=== PATIENT | female | born 1985 | race Caucasian/White ===

== ENCOUNTER 2017-04-19 05:16 | Inpatient (IN) | payer OTHER ==
[~2017-04-19] VITALS: Ht 167.6 cm; Wt 68.5 kg
[2017-04-19] VITALS (30 sets, daily range): BP systolic 95–140; BP diastolic 53–110; PULSE 73–98; RESP 16–18; TEMP 97.8–98.5; O2SAT 99–100
[~2017-04-19 05:16] MED LIST: PERC5TAB12 PO; PREN0.01 PO
[2017-04-19] MEDS ORDERED: MINERAL OIL 10 ML VIAL TOPICAL PRN (06:00)
[2017-04-19] MEDS ORDERED: LIDOCAINE HCL 1% 50 ML VIAL INFIL PRN (06:00)
[2017-04-19] MEDS ORDERED: LACTATED RINGER'S 1000 ML BOLUS IV PRN (06:00)
[2017-04-19] MEDS ORDERED: CITRIC ACID-SODIUM CITRATE LIQ 30 ML UDC PO SCH (06:00)
[2017-04-19] MEDS ORDERED: OXYTOCIN 30 UNITS 500ML PREMIX IV ONE (06:00)
[2017-04-19] MEDS ORDERED: ONDANSETRON HCL 4 MG/2 ML VIAL IV PUSH PRN ×2 (06:00→19:00)
[2017-04-19] MEDS ORDERED: NS 1000 ML IV PRN (06:00)
[2017-04-19] MEDS ORDERED: NS 500 ML BOLUS IV PRN (06:00)
[2017-04-19] MEDS ORDERED: LIDOCAINE HCL 1% 50 ML VIAL I-DERMAL PRN (06:00)
[2017-04-19] MEDS ORDERED: OXYTOCIN 30 UNITS/NS 500ML PREMIX IV PRN (06:15)
[2017-04-19] MEDS: LACTATED RINGER'S 1000 ML IV SCH ×2 (06:17→14:00)
[2017-04-19 06:27] LABS: BACTERIA, URINE RARE /hpf; BILIRUBIN, URINE NEG (NEG); BLOOD, URINE NEG (NEG); GLUCOSE,URINE NEG (NEG); KETONE, URINE NEG (NEG); MUCUS URINE FEW /lpf (OCC); NITRITE,URINE NEG (NEG); PH, URINE 6.5 (5.0-8.5); SQUAMOUS EPITHELIAL CELL URINE 6 /hpf (0-5); URINE COLOR YELLOW (YELLW/STRAW); URINE LEUKOCYTE ESTERASE NEG (NEG)
[2017-04-19 06:28] LABS: AUTOMATED NEUTROPHIL # 7.4 TH/MM3 (1.8-7.7); BASOPHIL % 0.3 % (0.0-2.0); EOSINOPHIL # 0.2 TH/MM3 (0-0.4); EOSINOPHIL % 1.8 % (0.0-4.0); HEMOGLOBIN 12.8 GM/DL (11.6-15.3); LYMPH % 20.2 % (9.0-44.0); LYMPHOCYTE # 2.1 TH/MM3 (1.0-4.8); MEAN CELL VOLUME 91.9 FL (80.0-100.0); MEAN CORPUSCULAR HEMOGLOBIN 33.5 PG (27.0-34.0); MEAN PLATELET VOLUME 8.6 FL (7.0-11.0); MONO % 5.7 % (0.0-8.0); MONOCYTE # 0.6 TH/MM3 (0-0.9); PLATELET COUNT 190 TH/MM3 (150-450); RED BLOOD COUNT 3.81 MIL/MM3 (4.00-5.30); RED CELL DISTRIBUTION WIDTH 13.7 % (11.6-17.2); WHITE BLOOD COUNT 10.3 TH/MM3 (4.0-11.0)
[2017-04-19 06:29] LABS: MEAN CORPUSCULAR HGB CONC 36.5 % (32.0-36.0)
[2017-04-19 07:06] LABS: BANDS 12 % (0-6); LYMPHOCYTES 16 % (9-44); MONOCYTES 3 % (0-8); NEUTROPHIL # MANUAL DIFF 8.1 TH/MM3 (1.8-7.7); POLYS (SEG NEUTROPHILS) 67 % (16-70)
[2017-04-19] MEDS ORDERED: ceFAZolin INJ 1,000 MG VIAL IV ONE (12:00)
[2017-04-19] MEDS ORDERED: ePHEDrine/NS 25 MG/5 ML SYRINGE IV ONE (12:00)
[2017-04-19] MEDS ORDERED: LACTATED RINGER'S 1000 ML INJ 1,000 ML IV ONE (12:00)
[2017-04-19] MEDS ORDERED: OXYTOCIN 10 UNIT/ML AMP IV ONE (12:00)
[2017-04-19] MEDS ORDERED: ONDANSETRON HCL 4 MG/2 ML VIAL IV ONE (12:00)
[2017-04-19] MEDS ORDERED: PHENYLEPH/NS 1000 MCG/10 ML SYR IV ONE (12:00)
--- NOTE | 2017-04-19 18:23 | PD.LABORPN ---
Subjective Subjective Pt has not had much ctx pain all day, good movement Objective Vital Signs Vital Signs Date Time Temp Pulse Resp B/P (MAP) Pulse Ox O2 Delivery O2 Flow Rate FiO2 04/19/17 17:30 98.4 16 04/19/17 16:45 16 04/19/17 16:15 16 04/19/17 15:45 16 04/19/17 15:15 16 04/19/17 15:14 90 109/69 (82) 04/19/17 14:15 16 04/19/17 13:45 16 04/19/17 13:41 73 102/58 (73) 04/19/17 12:45 16 04/19/17 12:15 16 04/19/17 11:15 16 04/19/17 10:25 16 Objective Pelvic Exam: Cervix:at 8 sm cvx was 3-4/70/-3..tried several times to AROM without success ...at 12 pm cvx 5/50/-3 with AROM attempted again but no fluid returned...ultrasound done revealing vtx, only 1 pocket of fluid found upper left quadrant...6 pm vcvx 5/70/-3 no descent of vtx Dilatation: [-] Effacement: [-] Station: [-] Presentation: [-] Membranes: [intact or ruptured] Uterine Contractions: IUPC placed at 12 pm....since then ctxs q 3-5 min at 40 -60 mmhg FHT's: Category: reactive tracing throughout the day, no decels Baseline: [-] Reactive: [-] Variability: [-] Decels: [-] Weeks Gestation: 40 Gest Age Assessed Date: Apr 19, 2017 Assessment/Plan Assessment and Plan IUP at 40 wks 3 dys with hx of vaginal delivery and then a c/s due to arrest of labor at 7 cm...pt desires and understands the need for gentle pitocin to avoid uterine rupture...throughout the day no progress with descent of vtx despite reasonable ctx pattern...reviewed my concerns with pt and and rec repeat c/s...they agree and will proceed. Skye Briggs MD Apr 19, 2017 18:23
[2017-04-19] MEDS ORDERED: ACETAMINOPHEN 1000 MG/100 ML 100 ML IV ONE (18:24)
[2017-04-19] MEDS ORDERED: MORPHINE SULFATE PF 5 MG/10 ML VIAL ONE (18:24)
[2017-04-19] MEDS ORDERED: KETOROLAC TROMETHAMINE 60 MG/2 ML (IM) VIAL IM PRN (18:30)
[2017-04-19] MEDS ORDERED: OXYTOCIN 30 UNITS-500ML PREMIX 500 ML IV ONE (19:00)
[2017-04-19] MEDS ORDERED: SODIUM CHLORIDE 0.9% FLUSH 10 ML FLUSH IV FLUSH PRN (19:00)
[2017-04-19] MEDS ORDERED: oxyCODONE/ACETAMINOPHEN 5 MG/325 MG TAB PO PRN ×2 (19:00)
[2017-04-19] MEDS ORDERED: SODIUM CHLORIDE 0.9% FLUSH 10 ML FLUSH IV FLUSH SCH (21:00)
[2017-04-19] MEDS: diphenhydrAMINE HCL 50 MG CAP PO PRN (22:11)
[2017-04-19] MEDS ORDERED: LACTATED RINGER'S 1000 ML INJ 1,000 ML IV SCH (23:23)
[2017-04-20] VITALS (8 sets, daily range): BP systolic 90–98; BP diastolic 51–64; PULSE 65–74; RESP 16–18; TEMP 97.5–98.1; O2SAT 96–97
[2017-04-20] MEDS: diphenhydrAMINE HCL 50 MG CAP PO PRN (02:17)
[2017-04-20] MEDS ORDERED: OXYTOCIN 30 UNITS-500ML PREMIX 500 ML IV PRN (04:30)
[2017-04-20 06:59] LABS: AUTOMATED NEUTROPHIL # 13.3 TH/MM3 (1.8-7.7); BASOPHIL % 0.1 % (0.0-2.0); EOSINOPHIL # 0.1 TH/MM3 (0-0.4); EOSINOPHIL % 0.4 % (0.0-4.0); HEMATOCRIT 33.2 % (35.0-46.0); HEMOGLOBIN 11.6 GM/DL (11.6-15.3); LYMPHOCYTE # 1.3 TH/MM3 (1.0-4.8); MEAN CELL VOLUME 93.8 FL (80.0-100.0); MEAN CORPUSCULAR HEMOGLOBIN 32.6 PG (27.0-34.0); MEAN CORPUSCULAR HGB CONC 34.8 % (32.0-36.0); MEAN PLATELET VOLUME 8.3 FL (7.0-11.0); MONOCYTE # 1.1 TH/MM3 (0-0.9); NEUT % 84.5 % (16.0-70.0); PLATELET COUNT 140 TH/MM3 (150-450); RED BLOOD COUNT 3.54 MIL/MM3 (4.00-5.30); RED CELL DISTRIBUTION WIDTH 13.6 % (11.6-17.2); WHITE BLOOD COUNT 15.7 TH/MM3 (4.0-11.0)
[2017-04-20] MEDS: IBUPROFEN 600 MG TAB PO PRN ×3 (09:08→22:26)
--- NOTE | 2017-04-20 12:52 | HHI.OB ---
Subjective Post Operative Day: 1 Remarks Pt doing well, no n/v, good pain control, ambulating well Objective Vitals/I&O Vital Signs Date Time Temp Pulse Resp B/P (MAP) Pulse Ox O2 Delivery O2 Flow Rate FiO2 04/20/17 08:00 98.1 16 96 04/20/17 08:00 73 90/60 (70) 04/20/17 07:00 18 04/20/17 06:00 16 04/20/17 03:15 18 04/20/17 02:17 97.9 74 18 98/64 (75) 04/20/17 00:00 16 04/19/17 23:11 18 04/19/17 22:11 18 04/19/17 21:00 98.5 18 04/19/17 21:00 86 112/68 (83) 04/19/17 20:15 80 18 103/60 (74) 04/19/17 20:15 99 04/19/17 20:00 82 18 95/59 (71) 100 04/19/17 19:45 116/60 (78) 04/19/17 19:45 93 18 99 04/19/17 19:30 97.8 90 18 103/53 (70) 04/19/17 19:30 100 04/19/17 17:30 98.4 16 04/19/17 16:45 16 04/19/17 16:15 16 04/19/17 15:45 16 04/19/17 15:15 16 04/19/17 15:14 90 109/69 (82) 04/19/17 14:15 16 04/19/17 13:45 16 04/19/17 13:41 73 102/58 (73) Result Diagram: 04/20/17 0535 Objective Remarks GENERAL: Well-nourished, well-developed patient. CARDIOVASCULAR: Regular rate and rhythm without murmurs, gallops, or rubs. RESPIRATORY: Breath sounds equal bilaterally. No accessory muscle use. ABDOMEN/GI: Abdomen soft, non-tender, bowel sounds present. Incision: Clean, dry and intact. Fundus: Firm, non-tender at umbilicus. GENITOURINARY: Light to moderate bleeding. EXTREMITIES: No cyanosis or edema, non-tender, without signs of DVT. Medications and IVs Current Medications Medications (Trade) Dose Ordered Sig/Queta Route Start Time Stop Time Status Last Admin Lactated Ringer's 1,000 ml @ 3,000 mls/hr BOLUS PRN IV 04/19/17 06:00 Sodium Chloride 500 ml @ 1,000 mls/hr BOLUS PRN IV 04/19/17 06:00 Sodium Chloride 1,000 ml @ 100 mls/hr Q10H PRN IV 04/19/17 06:00 (Bicitra Liq) 30 ml [employer] SUPERVISOR PO 04/19/17 06:00 04/22/17 05:59 (fentaNYL INJ) 50 mcg Q1H PRN IV PUSH 04/19/17 06:00 (fentaNYL INJ) 100 mcg Q1H PRN IV PUSH 04/19/17 06:00 (Muri-Lube Oil) 10 ml UNSCH PRN TOPICAL 04/19/17 06:00 Oxytocin 500 ml @ 0 mls/hr TITRATE PRN IV 04/19/17 06:15 04/19/17 06:18 Lactated Ringer's 1,000 ml @ 100 mls/hr Q10H IV 04/19/17 23:23 04/20/17 19:22 04/20/17 02:20 Oxytocin 500 ml @ 100 mls/hr UNSCH X1 PRN IV 04/20/17 04:30 04/21/17 04:29 (NS Flush) 2 ml BID IV FLUSH 04/19/17 21:00 (NS Flush) 2 ml UNSCH PRN IV FLUSH 04/19/17 19:00 (Motrin) 600 mg Q6H PRN PO 04/19/17 18:30 04/20/17 09:08 (Toradol Inj) 30 mg Q6H PRN IM 04/19/17 18:30 04/20/17 18:29 (Percocet 5-325 Mg) 1 tab Q4H PRN PO 04/19/17 19:00 04/20/17 09:08 (Percocet 5-325 Mg) 2 tab Q4H PRN PO 04/19/17 19:00 (M-M-R Ii Inj) 0.5 ml ONCE ONCE SQ 04/20/17 16:00 04/20/17 16:01 (Boostrix Inj) 0.5 ml ONCE ONCE IM 04/20/17 16:00 04/20/17 16:01 (Zofran Inj) 4 mg Q6H PRN IV PUSH 04/19/17 19:00 (Benadryl) 50 mg Q4H PRN PO 04/19/17 22:00 04/20/17 02:17 Skye Briggs MD Apr 20, 2017 12:52
--- NOTE | 2017-04-20 12:53 | HHI.DCPOC ---
Discharge Care Plan Diagnosis: (1) Status post repeat low transverse section Your Health Problems Are: delivery Report Symptoms to Your Doctor -Temperature above 100.5 degrees -Redness, of incision or excessive or foul smelling drainage -Unusual pain or calf pain -Increased vaginal bleeding -Painful or difficulty urinating -Feelings of extreme sadness or anxiety after 2 weeks Goals to Promote Your Health * To prevent worsening of your condition and complications * To maintain your health at the optimal level Directions to Meet Your Goals Take your medications as prescribed Follow your dietary instruction Follow activity as directed Ensure plenty of rest for recovery Drink fluids for hydration Keep your appointments as scheduled Take your immunizations and boosters as scheduled If your symptoms worsen call your PCP, if no PCP go to Urgent Care Center or Emergency Room Smoking is Dangerous to Your Health. Avoid second hand smoke Call the 24-hour crisis hotline for domestic abuse at Skye Briggs MD Apr 20, 2017 12:53
--- NOTE | 2017-04-20 12:55 | HHI.DS ---
Admission Date Apr 19, 2017 at 05:16 Admitting Diagnosis IUP at 40 wks 3 dys here for Diagnosis: Delivery Date: Apr 19, 2017 : Repeat : Male, Single Pt Condition on Discharge: Good Discharge Instructions Diet Instructions: As Tolerated, No Restrictions Activities You Can Perform: Pelvic Rest Skye Briggs MD Apr 20, 2017 12:54
[2017-04-20] MEDS ORDERED: DIPHTH/TETANUS/ACEL PERTUSSIS (BOOSTER) 0.5 ML VIAL/PFS IM ONE (16:00)
[2017-04-20] MEDS ORDERED: MEASLES, MUMPS, RUBELLA VACCINE 0.5 ML VIAL SQ ONE (16:00)
[2017-04-21] MEDS: IBUPROFEN 600 MG TAB PO PRN ×2 (05:22→11:24)
[2017-04-21 08:00] VITALS: BP 90/55; PULSE 16; RESP 18; TEMP 97.9; O2SAT 77; O2SAT 96
--- NOTE | 2017-04-21 10:20 | HHI.OB ---
Subjective Post Day: 2 Objective Vitals/I&O Vital Signs Date Time Temp Pulse Resp B/P (MAP) Pulse Ox O2 Delivery O2 Flow Rate FiO2 04/21/17 08:00 96 04/21/17 08:00 97.9 16 18 90/55 (67) 77 04/20/17 20:00 97.5 65 18 97 04/20/17 20:00 94/51 (65) 04/20/17 13:23 93/55 (68) Objective Remarks GENERAL: Well-nourished, well-developed patient. ABDOMEN/GI: Abdomen soft, non-tender. Fundus: Firm, non-tender at umbilicus. GENITOURINARY: Light to moderate bleeding. EXTREMITIES: No cyanosis or edema, non-tender, without signs of DVT. Medications and IVs Current Medications Medications (Trade) Dose Ordered Sig/Queta Route Start Time Stop Time Status Last Admin Lactated Ringer's 1,000 ml @ 3,000 mls/hr BOLUS PRN IV 04/19/17 06:00 Sodium Chloride 500 ml @ 1,000 mls/hr BOLUS PRN IV 04/19/17 06:00 Sodium Chloride 1,000 ml @ 100 mls/hr Q10H PRN IV 04/19/17 06:00 (Bicitra Liq) 30 ml EXHIBITION DESIGNER PO 04/19/17 06:00 04/22/17 05:59 (fentaNYL INJ) 50 mcg Q1H PRN IV PUSH 04/19/17 06:00 (fentaNYL INJ) 100 mcg Q1H PRN IV PUSH 04/19/17 06:00 (Muri-Lube Oil) 10 ml UNSCH PRN TOPICAL 04/19/17 06:00 Oxytocin 500 ml @ 0 mls/hr TITRATE PRN IV 04/19/17 06:15 04/19/17 06:18 (NS Flush) 2 ml BID IV FLUSH 04/19/17 21:00 (NS Flush) 2 ml UNSCH PRN IV FLUSH 04/19/17 19:00 (Motrin) 600 mg Q6H PRN PO 04/19/17 18:30 04/21/17 05:22 (Percocet 5-325 Mg) 1 tab Q4H PRN PO 04/19/17 19:00 04/20/17 09:08 (Percocet 5-325 Mg) 2 tab Q4H PRN PO 04/19/17 19:00 (Zofran Inj) 4 mg Q6H PRN IV PUSH 04/19/17 19:00 (Benadryl) 50 mg Q4H PRN PO 04/19/17 22:00 04/20/17 02:17 Assessment/Plan Problem List: (1) Status post repeat low transverse section ICD Codes: Z98.891 - History of uterine scar from previous surgery Discharge Planning doing well Minesh Orozco MD Apr 21, 2017 10:20
[2017-04-21] MEDS ORDERED: OXYC1TAB63 PO (10:23)
--- NOTE | 2017-04-22 07:24 | MP ---
cc: VERO QUARLES M.D. DATE OF SURGERY: 04/19/2017 PREOPERATIVE DIAGNOSIS: Intrauterine at 40 weeks and 3 days gestation with arrest of active phase of labor, failed induction, previous section. POSTOPERATIVE DIAGNOSIS: Intrauterine at 40 weeks and 3 days gestation with arrest of active phase of labor, failed induction, previous section. OPERATING SURGEON Dr. Vero Quarles. PROCEDURE: , repeat. ANESTHESIA: Spinal. FINDINGS AT SURGERY: Included a viable male weighing 6 pounds 15 ounces with Apgars of 7 and 9. Normal-appearing tubes and ovaries, prominent sacrum on exam. BLOOD LOSS: 800 cc COMPLICATIONS: None. PROCEDURE IN DETAIL: After proper consents were obtained, the patient was taken to the operating room where spinal anesthetic was placed. She was then placed in the dorsal position, sterilely prepped and draped and a Hyde catheter was placed at this time. Using a sharp knife I did the revision of a prior Pfannenstiel skin incision. This was carried down to the fascia using Bovie cautery. The fascia was nicked in the midline, extended superior laterally on each side. We then had blunt dissection of the muscles off of the fascia. Peritoneum was identified, grasped with two hemostats and entered sharply with Metzenbaum scissors. This incision was extended superiorly inferiorly paying close attention to the bladder. Bladder blade was placed. Bladder flap was developed. She had a ballooning lower segment. We went ahead and developed a bladder flap. We went ahead and made a transverse incision in the lower uterine segment, extended that using finger fracture technique. Rupture of membranes revealed clear fluid. The vertex was very high, not down in the pelvis at all and was difficult to deliver by vertex through the incision, so I made the decision to rotate the baby and deliver by breech, so I pulled out one leg followed by the second leg in the pelvis. We rotated that to the dorsal side up, the mid-scapular region, swiped the right hand across the face and chest, followed by the left and then delivered the head. Bulb suction to the oropharynx and nares. We clamped the cord in between, and the was handed to the team in attendance. A viable male weighing 6 pounds 15 ounces without Apgars 7 and 9. At this time cord blood was obtained. Placenta was removed. Uterus was exteriorized, wiped clean of clots and debris. The uterine incision was closed with a #1 chromic suture starting at each apex meeting in the midline in a running interlocking fashion. Excellent hemostasis was noted. Irrigation was performed of the abdominal pelvic cavity. We placed the uterus back into the cavity. Hemostasis was assured. We reapproximated the muscles using the #1 chromic suture x1. We then closed the fascia using a 0 Vicryl starting at each apex meeting in the midline in a running fashion. Irrigation was performed of the subcu. Hemostasis achieved with Bovie cautery. I closed the space using a few interrupted sutures of 3-0 Vicryl. We then closed the skin with gt, and all sponge, lap, and needle counts were correct x3. MD AMANDA Guzman/EARL /7:43 AM /7:10 AM
== END 2017-04-21 15:00 | disposition home or self-care (01) | DRG 765 ==
LOC: H2EA 05:16 → H1EA 20:38
PROVIDERS: ADMIT Obstetrics & Gynecology; ATTEND Obstetrics & Gynecology
PROC: 10D00Z1 Extraction of Products of Conception, Low, Open Approach (ICD-10-PCS; principal; 2017-04-19)
PROC: 10907ZC Drainage of Amniotic Fluid, Therapeutic from Products of Conception, Via Natural or Artificial Opening (ICD-10-PCS; 2017-04-19)
PROC: 10H07YZ Insertion of Other Device into Products of Conception, Via Natural or Artificial Opening (ICD-10-PCS; 2017-04-19)
PROC: 3E033VJ Introduction of Other Hormone into Peripheral Vein, Percutaneous Approach (ICD-10-PCS; 2017-04-19)
DX: O34.219 Maternal care for unspecified type scar from previous cesarean delivery (principal); O33.0 Maternal care for disproportion due to deformity of maternal pelvic bones; O61.9 Failed induction of labor, unspecified; O62.1 Secondary uterine inertia; Z37.0 Single live birth; Z3A.40 40 weeks gestation of pregnancy
CPT/HCPCS: 59025; 80307; 81001; 85007; 85025; 85027; 86900; 86901; J0131; J0690; J2274; J2370; J2405; J2590; J7120; Q0163